=== PATIENT | male | born 1990 | race Caucasian/White ===

== ENCOUNTER 2021-09-19 11:58 | Inpatient (IN) | payer OTHER ==
[~2021-09-19] VITALS: Ht 180.3 cm; Wt 73.2 kg
[2021-09-19 13:08] LABS: BASOPHIL 0.2 % (0-2); EOSINOPHIL 0.8 % (0-5); HCT 42.9 % (42.0-52.0); LYMPHOCYTE 35.7 % (15-48); MCH 28.7 pg (25.0-31.0); MCHC 32.6 g/dL (32.0-36.0); MCV 87.9 fL (78.0-100.0); MONOCYTE 8.1 % (0-12); NEUTROPHIL 54.9 % (41-80); NRBC 0; PLT 340 K/uL (150-400); RBC 4.88 M/uL (4.70-6.00); RDW 13.2 % (11.5-14.0); WBC 14.2 K/uL (4.0-10.5)
[2021-09-19 13:30] LABS: ALBUMIN 3.9 g/dL (3.4-5.0); BILIRUBIN - TOTAL 0.3 mg/dL (0.2-1.0); BUN/CREAT RATIO (CALC) 9.4 RATIO; C-REACTIVE PROTEIN 4.8 mg/dL (<=0.90); CREATININE 0.64 mg/dL (0.67-1.17); GLOBULIN (CALCULATION) 4.1 g/dL; POTASSIUM 3.7 mmol/L (3.5-5.1)
[2021-09-19 13:35] LABS: LACTIC ACID 1.2 mmol/L (0.4-1.9)
[2021-09-20 06:14] LABS: BASOPHIL 0.2 % (0-2); EOSINOPHIL 0.9 % (0-5); HCT 39.1 % (42.0-52.0); HGB 13.1 g/dl (13.2-18.0); LYMPHOCYTE 34.5 % (15-48); MCH 29.2 pg (25.0-31.0); MCHC 33.5 g/dL (32.0-36.0); MCV 87.1 fL (78.0-100.0); MONOCYTE 7.7 % (0-12); MPV 9.7 fL (6.0-9.5); NEUTROPHIL 56.3 % (41-80); NRBC 0; PLT 302 K/uL (150-400); RBC 4.49 M/uL (4.70-6.00); RDW 13.1 % (11.5-14.0); WBC 12.9 K/uL (4.0-10.5)
[2021-09-20 06:40] LABS: BUN/CREAT RATIO (CALC) 7.5 RATIO; C-REACTIVE PROTEIN 4.8 mg/dL (<=0.90); CREATININE 0.8 mg/dL (0.67-1.17); MAGNESIUM 2.1 mg/dL (1.8-2.4)
[2021-09-21 06:54] LABS: BASOPHIL 0.4 % (0-2); EOSINOPHIL 2.8 % (0-5); HCT 39.1 % (42.0-52.0); HGB 12.9 g/dl (13.2-18.0); LYMPHOCYTE 40.1 % (15-48); MCH 28.8 pg (25.0-31.0); MCV 87.3 fL (78.0-100.0); MONOCYTE 8.1 % (0-12); MPV 9.9 fL (6.0-9.5); NEUTROPHIL 48.3 % (41-80); NRBC 0; PLT 335 K/uL (150-400); RBC 4.48 M/uL (4.70-6.00); WBC 7.9 K/uL (4.0-10.5)
[2021-09-21 07:09] LABS: BUN/CREAT RATIO (CALC) 8.3 RATIO; C-REACTIVE PROTEIN 3.1 mg/dL (<=0.90); CREATININE 0.72 mg/dL (0.67-1.17); MAGNESIUM 2.1 mg/dL (1.8-2.4); POTASSIUM 3.7 mmol/L (3.5-5.1)
[2021-09-21] MEDS ORDERED: AUGMENTIN 875-1 EACH PO (19:21)
[2021-09-21] MEDS ORDERED: MUCINEX1200 MG PO (19:39)
== END 2021-09-21 21:35 | DRG 157 ==
LOC: FER 11:58 → FMS 16:54
PROVIDERS: Emergency Medicine; ADMIT Internal Medicine
PROC: 8E0ZXY6 Isolation (ICD-10-PCS; principal; 2021-09-19)
DX: K04.7 Periapical abscess without sinus (principal); U07.1 COVID-19; H05.019 Cellulitis of unspecified orbit; I10 Essential (primary) hypertension; Z20.822 Contact with and (suspected) exposure to COVID-19; F17.210 Nicotine dependence, cigarettes, uncomplicated; J01.90 Acute sinusitis, unspecified; B96.89 Other specified bacterial agents as the cause of diseases classified elsewhere; Z82.49 Family history of ischemic heart disease and other diseases of the circulatory system; B19.20 Unspecified viral hepatitis C without hepatic coma; K02.9 Dental caries, unspecified
CPT/HCPCS: 36415; 70450; 70487; 80048; 80053; 80202; 83605; 83735; 84145; 85025; 86140; 87040; 94010; J1885; J2405; J2543; J3370; J7030; J7040; J7050; U0002